=== PATIENT | female | born 2000 | race Caucasian/White ===

== ENCOUNTER 2024-09-11 16:53 | Emergency (ER) | payer OTHER, SELFPAY ==
[2024-09-11] MEDS ORDERED: Morphine 4 MG/ML VIAL ONE (17:10)
[2024-09-11] MEDS ORDERED: Ondansetron PF 4 MG/2 ML Vial ONE (17:10)
[2024-09-11 17:32] LABS: BHCG - Serum Negative (NEGATIVE); Pregs Control Background? CLEAR/WHITE (CLR/WHITE); Pregs Control Bar Appear? YES (CONTROL BAR)
[2024-09-11 17:33] LABS: Prothrombin Time 12.9 sec (12.0-14.7)
[2024-09-11 17:34] LABS: PTT 26.6 sec (22.9-36.1)
[2024-09-11] MEDS ORDERED: Bacitracin 1 PK ONE (17:39)
[2024-09-11] MEDS ORDERED: Morphine 2 MG/ML VIAL ONE ×2 (17:39→23:18)
[2024-09-11] MEDS ORDERED: Sodium Chloride 0.9% 1,000 ML ONE (17:39)
[2024-09-11] MEDS ORDERED: Boostrix 0.5 ML (Tdap) VIAL (>/=7 yrs of age) ONE (17:40)
[2024-09-11 17:41] LABS: ALT (SGPT) 14 U/L (8-55); AST (SGOT) 17 U/L (5-34); Albumin 3.9 g/dL (3.5-5.0); Alkaline Phosphatase 108 U/L (40-110); Anion Gap 16 mmol/L (10-20); BUN (Urea Nitrogen) 13 mg/dL (7.0-18.7); Bilirubin, Total 0.3 mg/dL (0.2-1.2); Calc. Creatinine Clearance 0 mL/min (70-130); Calcium 9.4 mg/dL (7.8-10.44); Carbon Dioxide 23 mmol/L (22-29); Chloride 108 mmol/L (98-107); Estimated GFR 89; Globulin 3.1 g/dL (2.4-3.5); Glucose 93 mg/dL (70-105); Potassium 3.3 mmol/L (3.5-5.1); Sodium 144 mmol/L (136-145)
[2024-09-11 17:44] LABS: Band 6 % (5-11); Hematocrit 42.2 % (36.0-47.0); Hemoglobin 12.9 g/dL (12.0-16.0); Hypochromia SLIGHT = 6-15 cells (100X) (0-5/hpf); Lymphocytes 23 % (21-51); MDiff Complete? YES; Mean Corpuscular HGB CONC 30.5 g/dL (32.0-36.0); Mean Corpuscular Hemoglobin 26.2 pg (27.0-31.0); Mean Platelet Volume 5.5 fL (7.4-10.4); Monocytes 15 % (0-10); Neutrophil 56 % (42-75); Platelet Adequacy Comment Appears Adequate; Platelet Count 356 10x3/uL (130-400); Red Blood Cell (RBC) Count 4.91 mill/uL (4.20-5.40); White Blood Cell (WBC) Count 11.3 10x3/uL (4.8-10.8)
[2024-09-11] MEDS ORDERED: Midazolam HCl 5 mg/ml Vial ONE (18:07)
[2024-09-11] MEDS ORDERED: fentaNYL 50 mcg/mL 1 mL Vial ONE ×3 (18:07→22:37)
== END 2024-09-11 23:55 | disposition short-term general hospital (02) ==
LOC: MADERS 16:53
DX: S82.51XA Displaced fracture of medial malleolus of right tibia, initial encounter for closed fracture (principal); S82.431A Displaced oblique fracture of shaft of right fibula, initial encounter for closed fracture; X50.9XXA Other and unspecified overexertion or strenuous movements or postures, initial encounter; Z23 Encounter for immunization
CPT/HCPCS: 27840; 80053; 84703; 85025; 85610; 85730; 90471; 90715; 96374; 96375; 96376; 99152; 99153; J2250; J2272; J2405; J3010; J7030